=== PATIENT | female | born 2000 | race Caucasian/White ===

== ENCOUNTER 2023-04-11 13:45 | Emergency (ER) | payer OTHER ==
[~2023-04-11] VITALS: Ht 165.1 cm; Wt 47.6 kg
--- NOTE | 2023-04-11 13:46 | NUR ---
PT PLACED IN BED 05 BY [facility]
[2023-04-11 13:47] VITALS: BP 121/53
--- NOTE | 2023-04-11 13:58 | NUR ---
PHLEB AT BEDSIDE DRAWING LABS
--- NOTE | 2023-04-11 13:59 | NUR ---
Lab at bedside
[2023-04-11 14:10] LABS: BASOPHILS # (AUTO) 0.1 K/uL (0.00-0.22); BASOPHILS % (AUTO) 1.1 % (0.0-2.0); EOSINOPHILS % (AUTO) 0.3 % (0.0-4.0); HEMATOCRIT 34.3 % (36-48); HEMOGLOBIN 11.5 g/dL (12.0-16.0); LYMPHOCYTES % (AUTO) 20.9 % (20.5-51.1); MEAN CORPUSCULAR HEMOGLOBIN 29 pg (27-31); MEAN CORPUSCULAR HGB CONC 34 g/dL (33-37); MONOCYTES # (AUTO) 0.2 K/uL (0.8-1.0); MONOCYTES % (AUTO) 5.1 % (1.7-9.3); NEUTROPHILS # (AUTO) 3.6 K/uL (1.8-7.7); NEUTROPHILS % (AUTO) 72.6 % (42.2-75.2); PLATELET COUNT (AUTO) 219 K/uL (140-450); RED BLOOD CELL COUNT(AUTO) 3.94 MIL/uL (4.20-5.40); RED CELL DISTRIBUTION WIDTH 14.1 % (11.6-13.7); WHITE BLOOD COUNT (AUTO) 4.9 K/uL (4.8-10.8)
--- NOTE | 2023-04-11 14:20 | NUR ---
US at bedside.
[2023-04-11 14:28] LABS: ALBUMIN 3.9 g/dL (3.4-5.0); ANION GAP 14.9 (8-16); ASPARTATE AMINOTRANSFERASE 11 U/L (15-37); CARBON DIOXIDE 22.9 mmol/L (21-32); CHLORIDE 103 mmol/L (98-107); CREATININE 0.6 mg/dL (0.6-1.3); GFR ARICAN-AMERICAN 161 mL/min (>90); GLUCOSE 89 mg/dL (74-106); POTASSIUM 3.8 mmol/L (3.5-5.1); SODIUM SERUM 137 mmol/L (136-145); TOTAL BILIRUBIN 1.1 mg/dL (0.0-1.0); UREA NITROGEN, BLOOD 7 mg/dL (7-18)
--- NOTE | 2023-04-11 14:32 | NUR ---
anterior neck wound irrigated
[2023-04-11 14:40] LABS: ACETAMINOPHEN < 0.5 ug/ml (10-30); SALICYLATE < 2.8 mg/dL (2.8-20.0)
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
--- NOTE | 2023-04-11 15:02 | NUR ---
Dr. Brandon Psych Provider evaluating pt at bedside.
[2023-04-11 15:04] LABS: CANNABINOID, URINE POSITIVE ng/mL (NEG <=50); OPIATE, URINE NEGATIVE ng/mL (NEG <=2000); PHENCYCLIDINE SCREEN,URINE NEGATIVE ng/mL (NEG <=25)
[2023-04-11 15:05] LABS: BARBITURATE, URINE NEGATIVE ng/ml (NEG <=200); BENZODIAZEPINE, URINE NEGATIVE ng/mL (NEG <=200); COCAINE, URINE NEGATIVE ng/mL (NEG <=300)
--- NOTE | 2023-04-11 15:15 | NUR ---
Per Dr. Brandon, patient will continue on hold and recommend inpatient hospitalization.
--- NOTE | 2023-04-11 17:40 | NUR ---
Pt is very agigtated with hold. Explained to pt that she will be on a 72 hour hold that will result in a possible transfer. Pt asked to speak with family, family was called but no answer. Pt stated she does not want to leave a message. Pt has been offered warm blanket and dinner tray. Pt is sitting up at hob eating dinner.
--- NOTE | 2023-04-11 18:01 | NUR ---
Packet faxed to: [facility] Dacia Chung [facility]
--- NOTE | 2023-04-11 18:53 | NUR ---
Pt was given phone to call family. Pt expressed concerns to family. Pt is highly irritated. Pt expresses she wants to go home. Hold explained by PRABHA Field to pt about how 5150 hold process works. Pt expressed understanding and continues to cooperate with medical orders.
--- NOTE | 2023-04-11 19:16 | NUR ---
Report given to [facility] Alejo for transfer of care.
--- NOTE | 2023-04-11 19:52 | NUR ---
PT IS RESTING AT THIS TIME. DENIES ANY PAIN. IS ACTING APPROPRIETLY. RESP EVEN AND UNLABORED. PT IS IN VIEW FROM NURSES STATION
--- NOTE | 2023-04-12 03:27 | NUR ---
PT SLEEPING RESP EVEN AND UNLABORED. PT IS PENDING PLACEMENT
--- NOTE | 2023-04-12 06:22 | NUR ---
PT SLEEPING RESP EVEN AND UNLABORED. PENDING POSS TRANSFER
--- NOTE | 2023-04-12 09:14 | NUR ---
Pt used the restroom ambulated on her own. Pt ate a full meal. Pt returned to bed and is resting.
--- NOTE | 2023-04-12 11:40 | NUR ---
Pt asleep resting on gurney. Pt has no complaints at this time. pt in view of nurses station, expressing no signs of harm to herslef or others.
--- NOTE | 2023-04-12 12:20 | NUR ---
Pt asleep in room. No signs and symtoms of discomfort. Per providers orders pt is still on hold awaiting transfer. Plan of care explained to pt. Pt is responsive of care. close to nursing station, frequently monitor. pt has no thoughts of harm towards herself and others. Spoke with pts grandfather, told family at this time im not able to disclose any information until pt agrees for him to be point of contact. Pts family understood and agreed to await contact from pt.
--- NOTE | 2023-04-12 14:52 | NUR ---
Pt asleep, in room. No signs and symptoms discomfort. Pt family updated on plan care. Pt is in clear view of nursing station. Pt does not express any signs of harming herself or family. Pt has been responsive of care.
--- NOTE | 2023-04-12 16:42 | NUR ---
Patient to be transferred to [facility]. Is being transferred due to higher level of care. Receiving facility has accepting physician and available space. ER physician has signed transfer form. Patient or responsible alliance party has agreed to transfer and signed form. Patient belongings inventoried and will be sent with patient. Copy of nursing notes, lab reports, EKG, Physicians Orders and X-rays to be sent with patient. Report called to Francesca at receiving facility. [facility] has been called for transfer. ETA is 1700.
--- NOTE | 2023-04-12 17:38 | NUR ---
PT FAMILY NOTIFIED OF TRANSFER.GRANDFATHER WAS LEFT A MESSAGE. PT WAS CHANGED INTO PAPER GOWN. ALL BELONGINGS GIVEN TO THE PT. PTS VITALS STABLE FOR TRANSFER. PT AGREES TO HIGHER LEVEL OF CARE AND CONTINUING PLAN OF CARE. RELEASED PT TO [facility] 1700
--- NOTE | 2023-04-12 17:48 | NUR ---
The patient's care was reviewed and supervised by Agency [facility] ED, RN.
[2023-04-12 17:49] VITALS: BP 114/76
== END 2023-04-11 17:38 ==
LOC: MED 13:45
DX: R45.851 Suicidal ideations (principal); Z20.822 Contact with and (suspected) exposure to COVID-19; Z79.899 Other long term (current) drug therapy
CPT/HCPCS: 36415; 76801; 80053; 80305; 81025; 85025; 86886; 86900; 86901; 87426; 99285; G0480; G0482; Q0092

== ENCOUNTER 2023-05-02 12:34 | Emergency (ER) | payer OTHER ==
[~2023-05-02] VITALS: Ht 162.6 cm; Wt 49.9 kg
[2023-05-02 12:57] VITALS: BP 113/76; PULSE 82; RESP 18; TEMP 97.6; O2SAT 98
[2023-05-02] MEDS ORDERED: LIDO5CRE19 TP (14:24)
[2023-05-02] MEDS ORDERED: ACET-2619 PO (14:24)
--- NOTE | 2023-05-02 15:01 | NUR ---
PT AMBULATED TO BED 7, [facility]
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
[2023-05-02 15:33] VITALS: BP 100/71; PULSE 74; RESP 14; TEMP 97.5; O2SAT 99
--- NOTE | 2023-05-02 15:33 | NUR ---
Patient discharged with v/s stable. Written and verbal after care instructions given and explained. Patient alert, oriented and verbalized understanding of instructions. Ambulatory with steady gait. All questions addressed prior to discharge. ID band removed. Patient advised to follow up with PMD. Rx of LIDOCAINE, ACETAMINOPHEN given. Patient educated on indication of medication including possible reaction and side effects. Opportunity to ask questions provided and answered.
--- NOTE | 2023-05-02 15:35 | NUR ---
The patient's care was reviewed and supervised by ED Agency Nurse 7, RN, RN.
== END 2023-05-02 15:53 | disposition home or self-care (01) ==
LOC: MED 12:34
DX: O9A.211 Injury, poisoning and certain other consequences of external causes complicating pregnancy, first trimester (principal); S63.610A Unspecified sprain of right index finger, initial encounter; S30.810A Abrasion of lower back and pelvis, initial encounter; Z3A.08 8 weeks gestation of pregnancy; Z79.899 Other long term (current) drug therapy; Y04.0XXA Assault by unarmed brawl or fight, initial encounter; Y93.89 Activity, other specified; Y92.89 Other specified places as the place of occurrence of the external cause; Y99.8 Other external cause status
CPT/HCPCS: 73140; 81025; 99283

== ENCOUNTER 2023-12-04 15:35 | Inpatient (IN) | payer OTHER ==
[~2023-12-04] VITALS: Ht 167.6 cm; Wt 67.6 kg
[~2023-12-04 15:35] MED LIST: ACET-2619 PO; LIDO5CRE19 TP
[2023-12-04] MEDS ORDERED: METHYLERGONOVINE 0.2 MG/ML AMP IM PRN (16:05)
[2023-12-04] MEDS ORDERED: ONDANSETRON 4 MG/2 ML VIAL IVP PRN (16:05)
[2023-12-04] MEDS ORDERED: PNV91TAB10 PO (16:57)
[2023-12-04 17:00] LABS: BASOPHILS % (AUTO) 0.4 % (0.0-2.0); EOSINOPHILS # (AUTO) 0.1 K/uL (0-0.4); EOSINOPHILS % (AUTO) 1.1 % (0.0-4.0); HEMATOCRIT 35.1 % (36-48); LYMPHOCYTES # (AUTO) 1.2 K/uL (2.5-16.5); LYMPHOCYTES % (AUTO) 22.4 % (20.5-51.1); MEAN CORPUSCULAR HEMOGLOBIN 30 pg (27-31); MEAN CORPUSCULAR HGB CONC 34 g/dL (33-37); MEAN CORPUSCULAR VOLUME 88.7 fL (80-94); MONOCYTES # (AUTO) 0.2 K/uL (0.8-1.0); NEUTROPHILS # (AUTO) 3.7 K/uL (1.8-7.7); NEUTROPHILS % (AUTO) 72.1 % (42.2-75.2); PLATELET COUNT (AUTO) 189 K/uL (140-450); RED BLOOD CELL COUNT(AUTO) 3.96 MIL/uL (4.20-5.40); RED CELL DISTRIBUTION WIDTH 13.7 % (11.6-13.7); WHITE BLOOD COUNT (AUTO) 5.2 K/uL (4.8-10.8)
[2023-12-04 17:07] LABS: APPEARANCE,URINE CLEAR (CLEAR); BILIRUBIN,URINE NEGATIVE (NEGATIVE); BLOOD, URINE NEGATIVE (NEGATIVE); COLOR,URINE YELLOW (YELLOW); LEUKOCYTE ESTERASE ,URINE 2+ (NEGATIVE); NITRITE, URINE NEGATIVE (NEGATIVE); PH,URINE 6.5 (5.0-9.0); PROTEIN,URINE NEGATIVE (NEGATIVE); UGLUCOSE NEGATIVE (NEGATIVE)
[2023-12-04 17:12] LABS: BACTERIA,URINE 2+ /HPF (None Seen); MUCUS,URINE None Seen /LPF (None Seen); RBC,URINE 0 /HPF (0-5); SQUAMOUS EPITHELIAL CELL,UR 4-10 (MOD) /LPF (0-3 (FEW))
[2023-12-04 17:25] LABS: INR 0.95 (0.8-1.2); PARTIAL THROMBOPLASTIN TIME 27.7 secs (22-35.6)
[2023-12-04 17:27] LABS: ALBUMIN 2.5 g/dL (3.4-5.0); ANION GAP 14.1 (8-16); CALCIUM 8.5 mg/dL (8.5-10.1); CARBON DIOXIDE 23.3 mmol/L (21-32); CREATININE 0.6 mg/dL (0.6-1.3); POTASSIUM 3.4 mmol/L (3.5-5.1); TOTAL BILIRUBIN 0.7 mg/dL (0.0-1.0); TOTAL PROTEIN, SERUM 7.9 g/dL (6.4-8.2)
[2023-12-04] MEDS: LACTATED RINGERS 1,000 ML IV SCH ×2 (17:39→23:02)
[2023-12-04] MEDS ORDERED: MISOPROSTOL 200 MCG TAB VG SCH (18:00)
[2023-12-04] MEDS: MISOPROSTOL 25 MCG TAB VG SCH (18:02)
[2023-12-04 21:30] LABS: AMPHETAMINE, URINE NEGATIVE ng/ml (NEG <=1000); BARBITURATE, URINE NEGATIVE ng/ml (NEG <=200); BENZODIAZEPINE, URINE NEGATIVE ng/mL (NEG <=200); CANNABINOID, URINE NEGATIVE ng/mL (NEG <=50); COCAINE, URINE NEGATIVE ng/mL (NEG <=300); PHENCYCLIDINE SCREEN,URINE NEGATIVE ng/mL (NEG <=25)
[2023-12-04 21:31] LABS: OPIATE, URINE NEGATIVE ng/mL (NEG <=2000)
[2023-12-05] MEDS: MISOPROSTOL 25 MCG TAB VG SCH (00:09)
[2023-12-05] MEDS: MORPHINE SULFATE 10 MG/ML VIAL IVP PRN ×2 (02:08→05:15)
[2023-12-05] MEDS ORDERED: ROPIVACAINE 0.2%/NS PREMIX 200 ML EPI ONE (05:10)
[2023-12-05 05:15] VITALS: BP 120/76; PULSE 69; RESP 20
[2023-12-05] MEDS: LACTATED RINGERS 1,000 ML IV SCH (05:20)
[2023-12-05] MEDS ORDERED: OXYTOCIN 20 UNITS/LR PREMIX 1,000 ML IV ONE (06:25)
[2023-12-05] MEDS ORDERED: OXYTOCIN 20 UNITS/LR PREMIX 1,000 ML IV SCH (06:50)
[2023-12-05] MEDS ORDERED: OXYTOCIN 10 UNITS/ML VIAL IM PRN (10:15)
[2023-12-05] MEDS ORDERED: BENZOCAINE/MENTHOL 20%-0.5% 60 GM CAN TP PRN (10:15)
[2023-12-05] MEDS ORDERED: IBUPROFEN 800 MG TAB PO PRN (10:15)
[2023-12-05] MEDS ORDERED: TEMAZEPAM 15 MG CAP PO PRN (10:15)
[2023-12-05] MEDS ORDERED: SODIUM PHOSPHATE 118 ML ENEM RC PRN (10:15)
[2023-12-05] MEDS ORDERED: METHYLERGONOVINE 0.2 MG TAB PO PRN (10:15)
[2023-12-05] MEDS ORDERED: oxyCODONE/APAP 5/325 MG 1 TAB TAB PO PRN (10:15)
[2023-12-05] MEDS: oxyCODONE/APAP 5/325 MG 1 TAB TAB PO PRN ×2 (15:58→21:50)
[2023-12-05] MEDS ORDERED: DOCUSATE SOD/SENNA 50/8.6 MG 1 TAB PO SCH (21:00)
[2023-12-06 06:35] LABS: HEMATOCRIT 28.1 % (36-48); HEMOGLOBIN 9.7 g/dL (12.0-16.0)
== END 2023-12-06 12:15 | disposition home or self-care (01) | DRG 560 ==
LOC: MLD 15:35 → MFCC 12-05 09:00
PROVIDERS: ADMIT Obstetrics & Gynecology; ATTEND Obstetrics & Gynecology
PROC: 10E0XZZ Delivery of Products of Conception, External Approach (ICD-10-PCS; principal; 2023-12-04)
PROC: 3E0R3BZ Introduction of Anesthetic Agent into Spinal Canal, Percutaneous Approach (ICD-10-PCS; 2023-12-04)
PROC: 00HU33Z Insertion of Infusion Device into Spinal Canal, Percutaneous Approach (ICD-10-PCS; 2023-12-04)
PROC: 3E0234Z Introduction of Serum, Toxoid and Vaccine into Muscle, Percutaneous Approach (ICD-10-PCS; 2023-12-05)
DX: O62.0 Primary inadequate contractions (principal); Z37.0 Single live birth; O48.0 Post-term pregnancy; Z20.822 Contact with and (suspected) exposure to COVID-19; Z3A.40 40 weeks gestation of pregnancy; O69.81X0 Labor and delivery complicated by cord around neck, without compression, not applicable or unspecified
CPT/HCPCS: 36415; 59200; 59409; 76815; 80053; 80305; 81001; 85018; 85025; 85610; 85730; 86592; 86762; 86850; 86886; 86900; 86901; 87086; 87340; 87653-90; J2270; J2405; J2590; J2790; J2795; J7120; Q0092